=== PATIENT | male | born 1975 | race African-American/Black ===

== ENCOUNTER 2020-10-13 13:17 | Inpatient (IN) | payer OTHER, SELFPAY ==
--- NOTE | ~2020-10-13 | US_ITS ---
EXAMINATION: US VENOUS ULTRASOUND WITH DOPPLER LOWER EXTREMITY, LEFT CLINICAL INFORMATION: Left lower extremity edema and pain. COMPARISON: None TECHNIQUE: Ultrasound of the deep veins is performed from the hip to the calf with compression sonography and color and pulse Doppler assessment. Spectral analysis with color-flow imaging is performed. FINDINGS: The common femoral vein demonstrates normal compression and flow on color Doppler. The femoral vein is duplicated within the proximal and mid thigh. There is noncompressibility and hypoechoic material within both femoral veins consistent with acute thrombus. There is also noncompressibility within the single distal femoral vein consistent with acute thrombus. The popliteal vein is compressible and appears patent on color imaging. The peroneal veins are not identified. The posterior tibial veins appear patent. US/US venous duplex LE LT IMPRESSION: Acute DVT within both duplicated femoral veins. Findings communicated to Dr. Collazo via telephone at 1501 on 10/13/[address] Bravo.
--- NOTE | ~2020-10-13 | CT_ITS ---
EXAMINATION: CT LOWER LEG WITH CONTRAST, LEFT CLINICAL INFORMATION: Evaluate for abscess COMPARISON: None TECHNIQUE: CT of the left lower leg following intravenous administration of 85 mL Omnipaque 350 iodinated contrast is performed with sagittal and coronal reformats. This CT examination was performed using dose optimization techniques as appropriate, variously including the following: *Automated exposure control *Adjustment of mA and/or kV according to patient size (this includes techniques or standardized protocols for targeted exams where dose is matched to indication/reason for exam; i.e. extremities or head) *Use of iterative reconstruction technique DLP: 305 FINDINGS: There is artifact related to the fracture fixation plate and screws and metallic fragments. The comminuted tibial fracture appears predominantly healed, with residual longitudinal defect along the lateral cortex and some persistent lucency surrounding both fragments and cortical fragments within the central portion of the medullary canal. Overall, osseous bridging is approximately 90%. There is diffuse subcutaneous edema. No focal or peripherally enhancing fluid collection is demonstrated to indicate an abscess. CT/CT lower leg LT w con IMPRESSION: Approximately 90% osseous bridging of the comminuted tibial fracture. Diffuse subcutaneous edema with no focal fluid collection to indicate an abscess. Visualization is partially obscured by metal artifact.
[2020-10-13 13:23] VITALS: BP 140/78; PULSE 45; RESP 16; O2SAT 100; BMI 35.2
[2020-10-13 13:29] VITALS: BP 141/77; PULSE 47; RESP 16; TEMP 37; O2SAT 99
--- NOTE | 2020-10-13 13:29 | ED_ITS ---
HPI - Extremity Problem General Chief complaint: Extremity Injury, Lower Stated complaint: left lower leg pain/swelling s/p lac ?infection Time Seen by Provider: 10/13/20 13:22 Source: patient and EMS Mode of arrival: other (EMS in police custody) Limitations: no limitations History of Present Illness HPI Narrative: 45 yo male comes in with PD initial call for anxiety but then he told EMS he noted his L leg was more swollen and painful yesterday treated 2 weeks ago in [place] for laceration repair after cutting it with his glass - denies tetanus shot is up to date. denies any systemic symptoms MD Complaint: extremity pain and extremity swelling Onset (ago): day(s) (very vague but states he really noticed it yesterday) Pain Consistency: constant Location: left and lower extremity Quality: aching and constant Radiation: proximal Exacerbating factors: weight bearing, walking and palpation Associated symptoms: denies other symptoms Context: recent surgery/procedure (lac repair) Related Data Allergies Allergy/AdvReac Type Severity Reaction Status Date / Time No Known Allergies Allergy Verified 10/13/20 13:36 Review of Systems Review of Systems: Constitutional : No Fever, No Chills ENT/Mouth : No sore throat, No Rhinorrhea Eyes: No Eye Pain, No Swelling, No Redness Cardiovascular : No Chest Pain, No SOB Respiratory : No Cough, No Sputum Gastrointestinal : No Nausea, No Vomiting, No Diarrhea, No abdominal Pain Genitourinary : No Dysuria, No Hematuria Musculoskeletal : No joint pain, No Myalgias, No Joint Swelling, pos leg pain and swelling Skin : No Skin Lesions, positive skin rash Neuro : No Weakness, No Numbness, No Headache Psych : No Anxiety, No Depression Heme/Lymph: No Bruising, No Bleeding,No Lymphadenopathy Endocrine : No Polyuria, No Polydipsia All other systems reviewed and are negative PMFSH Past Medical History Attestation statement: The following information was validated with the patient. Medical History (Updated 10/13/20 @ 16:03 by Daisha Collazo DO) Patient denies medical problems Social History Social History (Updated 10/13/20 @ 13:49 by Daisha Collazo DO) Patient Tobacco Use Status: Current everyday Tobacco user Use of substances other than those prescribed or required for medical reasons: No Advance Directives: No Advance Directives Information Provided: No Physical Exam Vital Signs: Vital Signs: Last Vital Signs Temp 98.6 F 10/13/20 13:29 Pulse 45 L 10/13/20 14:51 Resp 16 10/13/20 14:51 BP 125/72 10/13/20 14:51 Pulse Ox 96 10/13/20 14:51 Body Mass Index 35.2 Appearance: Alert. Oriented X3. No acute distress. Eyes: Pupils equal, round and reactive to light. ENT: Pharynx normal. Neck: Normal inspection. Neck supple. CVS: Normal heart rate and rhythm. Pulses normal. Respiratory: No respiratory distress. Breath sounds normal. Abdomen: Soft and nontender. Skin: Skin warm and dry. Normal skin color. Extremities: LLE moderate swelling with dehisced suture area on left lateral upper cardozo - there is yellow drainage noted that is purulent with an odor, area is warm to the touch and erythematous, distal NV intact, no crepitus felt Neuro: Oriented X 3. No motor deficit. No sensory deficit. Course Course Course Narrative: + DVT will order coags as well as lovenox likely admit at this time and will obtain CT Scan as well to r/o abscess Dr. Benites aware does not seem abscess noted on CT scan, okay to give lovenox at this time Procedures Procedure Narrative Procedure Narrative: removal of sutures uncomplicated partially dehisced MDM - Extremity (Nontraumatic) MDM Narrative Medical decision making narrative: 45 yo male with LLE swelling and infection wi th sutures still in place - will need labs, IV antibiotics zosyn and vancomycin, DVT study and CT scan for deeper infection, dispo per results and findings at this time. Lab Data Result diagrams: 10/13/20 15:55 10/13/20 14:03 Labs: Lab Results 10/13/20 10/13/20 10/13/20 Range/Units 14:03 14:04 14:04 WBC (4.8-10.8) X10*3/uL RBC (4.60-5.80) X10*6/uL Hgb (14.0-18.0) g/dl Hct (42-52) % MCV (80-98) fL MCH (27.0-33.0) pg MCHC (31.0-36.0) g/dl RDW (11.0-16.0) % Plt Count (160-400) X10*3/uL MPV (9.4-12.4) fL Immature Gran % (Auto) (0.0-0.4) % Neut % (Auto) (45-73) % Lymph % (Auto) (20-40) % [place] % (Auto) (2-11) % Eos % (Auto) (0-4) % Baso % (Auto) (0-2) % Lymph # (Auto) (1.2-4.9) X10*3/uL [place] # (Auto) (0.1-1.2) X10*3/uL Eos # (Auto) (0.0-0.4) X10*3/uL Baso # (Auto) (0.0-0.2) X10*3/uL Abs Immat Gran (auto) (0.00-0.03) X10*3/uL Absolute Neuts (auto) (2.0-8.3) X10*3/uL Absolute Nucleated RBC (0.0-0.012) X10*3/uL Nucleated RBC % (auto) (0.0-0.2) /100WBC Sodium 138 (135-145) mmol/L Potassium 4.8 (3.3-5.1) mmol/L Chloride 105 (96-108) mmol/L Carbon Dioxide 24 (22-29) mmol/L Anion Gap 14 (12-20) BUN 14 (9-16) mg/dL Creatinine 0.93 (0.5-1.4) mg/dL Estim Creat Clear Calc 135.7 Estimated GFR > 60 Random Glucose 103 (60-115) mg/dL Lactic Acid 1.1 (0.5-2.0) mmol/L Calcium 9.2 (8.4-10.2) mg/dL Magnesium 2.3 (1.6-2.6) mg/dL Total Bilirubin 0.3 (0.0-1.0) mg/dL Direct Bilirubin < 0.2 (0.0-0.5) mg/dL AST 22 (5-37) U/L ALT 18 (0-40) U/L Alkaline Phosphatase 43 (39-117) U/L Total Creatine Kinase 236 H (38-174) U/L C-Reactive Protein 0.22 (< or = 0.50) mg/dL Total Protein 7.4 (6.5-8.0) g/dL Albumin 4.0 (3.5-5.0) g/dL COVID-19 ([facility]) Negative (Negative) COVID-19 Clin Com See Note 10/13/20 Range/Units 15:55 WBC 7.8 (4.8-10.8) X10*3/uL RBC 4.26 L (4.60-5.80) X10*6/uL Hgb 12.1 L (14.0-18.0) g/dl Hct 38.0 L (42-52) % MCV 89.2 (80-98) fL MCH 28.4 (27.0-33.0) pg MCHC 31.8 (31.0-36.0) g/dl RDW 13.3 (11.0-16.0) % Plt Count 172 (160-400) X10*3/uL MPV 10.5 (9.4-12.4) fL Immature Gran % (Auto) 0.3 (0.0-0.4) % Neut % (Auto) 71.8 (45-73) % Lymph % (Auto) 18.3 L (20-40) % [place] % (Auto) 7.9 (2-11) % Eos % (Auto) 1.3 (0-4) % Baso % (Auto) 0.4 (0-2) % Lymph # (Auto) 1.4 (1.2-4.9) X10*3/uL [place] # (Auto) 0.6 (0.1-1.2) X10*3/uL Eos # (Auto) 0.1 (0.0-0.4) X10*3/uL Baso # (Auto) 0.0 (0.0-0.2) X10*3/uL Abs Immat Gran (auto) 0.02 (0.00-0.03) X10*3/uL Absolute Neuts (auto) 5.6 (2.0-8.3) X10*3/uL Absolute Nucleated RBC 0.000 (0.0-0.012) X10*3/uL Nucleated RBC % (auto) 0.0 (0.0-0.2) /100WBC Sodium (135-145) mmol/L Potassium (3.3-5.1) mmol/L Chloride (96-108) mmol/L Carbon Dioxide (22-29) mmol/L Anion Gap (12-20) BUN (9-16) mg/dL Creatinine (0.5-1.4) mg/dL Estim Creat Clear Calc Estimated GFR Random Glucose (60-115) mg/dL Lactic Acid (0.5-2.0) mmol/L Calcium (8.4-10.2) mg/dL Magnesium (1.6-2.6) mg/dL Total Bilirubin (0.0-1.0) mg/dL Direct Bilirubin (0.0-0.5) mg/dL AST (5-37) U/L ALT (0-40) U/L Alkaline Phosphatase (39-117) U/L Total Creatine Kinase (38-174) U/L C-Reactive Protein (< or = 0.50) mg/dL Total Protein (6.5-8.0) g/dL Albumin (3.5-5.0) g/dL COVID-19 ([facility]) (Negative) COVID-19 Clin Com Discharge Plan Discharge Clinical Impression: Cellulitis Qualifiers: Site of cellulitis: extremity Site of cellulitis of extremity: lower extremity Laterality: left Qualified Code(s): L03.116 - Cellulitis of left lower limb DVT (deep venous thrombosis) Qualifiers: DVT location: lower extremity Affected thrombotic vein of extremity: femoral Chronicity: acute Laterality: left Qualified Code(s): I82.412 - Acute embolism and thrombosis of left femoral vein Patient Disposition: Admitted As Inpatient
--- NOTE | 2020-10-13 13:33 | PC.NURSE ---
patient is in [facility] custody s/p shoplifting incident. Per EMS patient gave the police a false identity d/t the fact that he has several warrants under his name. Patient denies this and when prompted by this RN if he had identification or was able to state his social security number he denies having any form of identification or knowledge of his social security number. Charge nurse and provider made aware.
[2020-10-13] MEDS: Piperacillin Sodium/Tazobactam 3.375 GM in 0.9 % Sodium Chloride 50 ML IV ×2 (14:09→17:45)
[2020-10-13] MEDS: Diphth,Pertus(ACell),Tet Adult 0.5 ML SYRINGE IM (14:10)
[2020-10-13 14:32] LABS: COVID-19 Test Negative (Negative)
[2020-10-13 14:34] LABS: Lactic Acid 1.1 mmol/L (0.5-2.0)
[2020-10-13 14:42] LABS: Alanine Aminotransferase 18 U/L (0-40); Alkaline Phosphatase 43 U/L (39-117); Anion Gap 14 (12-20); Aspartate Amino Transferase 22 U/L (5-37); Bilirubin Direct < 0.2 mg/dL (0.0-0.5); Bilirubin Total 0.3 mg/dL (0.0-1.0); Blood Urea Nitrogen 14 mg/dL (9-16); C Reactive Protein 0.22 mg/dL (< or = 0.50); Calcium 9.2 mg/dL (8.4-10.2); Carbon Dioxide 24 mmol/L (22-29); Chloride 105 mmol/L (96-108); Creatinine Clr Calc Pharmacy 135.7; Estimated Glomerular Filt Rate > 60; Glucose Random 103 mg/dL (60-115); Magnesium 2.3 mg/dL (1.6-2.6); Potassium 4.8 mmol/L (3.3-5.1); Sodium 138 mmol/L (135-145); Total Protein 7.4 g/dL (6.5-8.0)
[2020-10-13] MEDS: vancomycin HCL 1,500 MG in 0.9 % Sodium Chloride 500 ML 333.33 MG IV (14:50)
[2020-10-13 14:51] VITALS: BP 125/72; PULSE 45; RESP 16; O2SAT 96
[2020-10-13] MEDS: iohexoL 350 MG/ML 100 ML INFUS..BTL IV (15:26)
[2020-10-13 15:57] LABS: MANUAL DIFF FLAG NO
[2020-10-13 15:59] LABS: Basophils Percent Auto 0.4 % (0-2); Eosinophils Absolute Auto 0.1 X10*3/uL (0.0-0.4); Eosinophils Percent Auto 1.3 % (0-4); Hemoglobin 12.1 g/dl (14.0-18.0); Imm Gran Abs Auto 0.02 X10*3/uL (0.00-0.03); Imm Gran Pct Auto 0.3 % (0.0-0.4); Lymphocytes Absolute Auto 1.4 X10*3/uL (1.2-4.9); Lymphocytes Percent Auto 18.3 % (20-40); Mean Corpuscular HGB Conc 31.8 g/dl (31.0-36.0); Mean Corpuscular Hemoglobin 28.4 pg (27.0-33.0); Mean Corpuscular Volume 89.2 fL (80-98); Mean Platelet Volume 10.5 fL (9.4-12.4); Monocytes Absolute Auto 0.6 X10*3/uL (0.1-1.2); Monocytes Percent Auto 7.9 % (2-11); Neutrophils Absolute Auto 5.6 X10*3/uL (2.0-8.3); Neutrophils Percent Auto 71.8 % (45-73); Platelet Count 172 X10*3/uL (160-400); Red Blood Count 4.26 X10*6/uL (4.60-5.80); Red Cell Distribution Width 13.3 % (11.0-16.0); White Blood Count 7.8 X10*3/uL (4.8-10.8)
[2020-10-13 16:17] LABS: Prothrombin Time 11.2 SEC (9.9-13.0)
[2020-10-13 16:20] LABS: Partial Thromboplastin Time 35.7 SEC (24.1-38.0)
[2020-10-13] MEDS: Enoxaparin Sodium 100 MG/ML SYRINGE 120 MG SUBCUT (16:39)
[2020-10-13 18:17] VITALS: BP 138/78; PULSE 52; RESP 20; TEMP 36.7; O2SAT 99
[2020-10-13 19:00] LABS: Hematocrit 39.5 % (42-52); Hemoglobin 12.7 g/dl (14.0-18.0); Mean Corpuscular HGB Conc 32.2 g/dl (31.0-36.0); Mean Corpuscular Hemoglobin 28.6 pg (27.0-33.0); Platelet Count 172 X10*3/uL (160-400); Red Blood Count 4.44 X10*6/uL (4.60-5.80); Red Cell Distribution Width 13.3 % (11.0-16.0); White Blood Count 6.8 X10*3/uL (4.8-10.8)
[2020-10-13 19:02] LABS: Prothrombin Time 11.9 SEC (9.9-13.0)
[2020-10-13 19:06] LABS: Partial Thromboplastin Time 48.1 SEC (24.1-38.0)
--- NOTE | 2020-10-13 19:24 | PC.NURSE ---
patient reported to this RN that he was supposed to start methadone today and was wondering if he would be able to get his dose at [facility]. per pt the last time he used was 10/13 at 0300. this RN informed the patient that typically [facility] does not start individuals on methadone and that given the fact that he used at 0300, they also prefer to wait at least a 24hr period and even then may not give methadone but rather suboxone. information regarding this conversation was relayed to the head charger and will be relayed to the floor RN.
--- NOTE | 2020-10-13 19:40 | PC.NURSE ---
attempted to call report to the floor, will call back when available
[2020-10-13 20:38] VITALS: BP 141/75; PULSE 50; RESP 16; TEMP 36.4; O2SAT 100
[2020-10-13] MEDS: Nicotine 21 MG PATCH.TD24 TRANSDERMA (20:47)
[2020-10-13] MEDS: HYDROmorphone HCl 0.5 MG/0.5 ML SYRINGE 1 MG IVPUSH (20:48)
[2020-10-13] MEDS: 0.9 % Sodium Chloride Flush 3 ML SYRINGE IVFLUSH (20:48)
--- NOTE | 2020-10-13 22:03 | HP_ITS ---
DATE OF SERVICE: 10/13/2020 CHIEF COMPLAINT: Left leg swelling and pain. HISTORY OF PRESENTING ILLNESS: This is a 45-year-old gentleman brought to [facility] under police custody since the patient was arrested due to shoplifting. The patient complained of left leg swelling and pain. Approximately 2 weeks ago, the patient sustained a laceration due to significant cut from a glass. The wound was repaired at [place], patient was supposed to have a followup in 7 to 10 days, however, he missed the appointment and subsequently developed significant pain and swelling. In the emergency room, the patient was noted to have drainage and wound dehiscence in the left leg. CT scan of the left leg showed no fluid collection or drainable abscess. Sutures were removed,significant amount of pus was drained. Further workup included an ultrasound of the left leg that showed DVT of duplicated femoral veins, therefore, the patient was placed on Lovenox and now being admitted for continued monitoring and treatment. The patient at the present time admits that he is going through withdrawal symptoms, feeling shaky, nauseous, he admits using 3 bundles of heroin daily, last use was this morning. He usually smokes or inhale. Denies IV drug use. He also admits to drinking quarter pint of alcohol on a daily basis,last drink was at 3 am , complaining of shakiness. He is also complaining of feeling cold, chilly, and feverish. PAST MEDICAL HISTORY: Significant for left tibial fracture. SOCIAL HISTORY: The patient smokes 1 pack of cigarette a day. He smokes 3-bundle of heroin daily. He does private work. Ambulates without assistive device. FAMILY HISTORY: Denies family history of premature coronary artery disease, diabetes. REVIEW OF SYSTEMS: SIGNAL CIRCUIT DESIGNER: Denies any headache, lightheadedness, or dizziness. CVS: Denies any chest pain or palpitation. RESPIRATORY: No cough. No shortness of breath. : No urinary symptoms of frequency or urgency. GENERAL: Complain of chills, feverish feeling, and shakiness. PHYSICAL EXAMINATION: GENERAL: Resting in bed, does not appear to be in acute distress. NECK: Supple. No JVD. Oral mucosa moist. LUNGS: Clear to auscultation bilaterally. HEART: Regular rate and rhythm. No murmurs appreciated. ABDOMEN: Soft and nontender. Bowel sounds are audible. EXTREMITIES: No peripheral edema noted. Left thigh swollen with an open wound, tender to palpation with mild induration. NEUROLOGIC: The patient is alert and oriented x3. No motor or sensory deficit noted. LABORATORY DATA: Showed a normal CBC and normal electrolytes. CK 236. CRP 0.22. Imaging study, lower extremity CT showed no evidence of fluid collection. ASSESSMENT AND PLAN: This is a 45-year-old gentleman who presented to [facility] due to symptoms of left thigh swelling and pain, worse in the last 3 days after he sustained a laceration 2 weeks ago that was sutured, it oozed. The patient now diagnosed to have left femoral vein thrombosis, infected left thigh laceration, alcohol intoxication and withdrawal as well as opioid use disorder. 1. Left femoral vein deep vein thrombosis. The patient will be admitted to intermediate care unit, has been placed on Lovenox twice daily. Subsequently, will be placed on oral anticoagulant after obtaining further information regarding his PCP and insurance. 2. Infected left thigh laceration. The patient will be placed on IV vancomycin and Zosyn. Follow blood cultures x2. Obtain surgical consultation for possible I and D. Continue wound care. 3. Tobacco use disorder. We will place on nicotine patch. Strongly advised to abstain from smoking. 4. Alcohol abuse with high risk for withdrawal, will be placed on phenobarb protocol, thiamine, folic acid, placed on Pepcid for GI prophylaxis. 5. Opioid use disorder, will be placed on Ativan, Atarax, we will obtain care team consultation and addiction team consultation. 6. Deep vein thrombosis prophylaxis on Lovenox. 7. Code status. Full code. MD TAHIRA Hinds/OLIVA / [id number] MTDYunier
[2020-10-13 23:12] VITALS: BP 141/73; PULSE 41; RESP 18; TEMP 36.8; O2SAT 99
[2020-10-13] MEDS: Acetaminophen 325 MG TABLET 650 MG PO (23:18)
[2020-10-13] MEDS: hydrOXYzine HCL 10 MG TABLET PO (23:19)
[2020-10-14] VITALS (7 sets, daily range): BP systolic 142–168; BP diastolic 74–86; PULSE 45–54; RESP 18–20; TEMP 36.4–36.7; O2SAT 98–100
[2020-10-14] MEDS: Piperacillin Sodium/Tazobactam 3.375 GM in 0.9 % Sodium Chloride 50 ML IV ×4 (00:06→18:40)
[2020-10-14] MEDS: vancomycin HCL 1,250 MG in 0.9 % Sodium Chloride 250 ML 166.67 MG IV ×2 (02:42→15:32)
[2020-10-14] MEDS: Enoxaparin Sodium 120 MG/0.8 ML SYRINGE SUBCUT ×2 (04:34→18:40)
[2020-10-14] MEDS: HYDROmorphone HCl 0.5 MG/0.5 ML SYRINGE 1 MG IVPUSH ×4 (04:35→18:40)
[2020-10-14 05:16] LABS: Amphetamine Screen Urine Not Detected (Not Detect); Barbiturates, Urine Not Detected (Not Detect); Benzodiazepines Screen Urine Not Detected (Not Detect); Cannabinoid Screen Urine Not Detected (Not Detect); Cocaine Screen Urine POSITIVE (Not Detect); Opiate Screen Urine POSITIVE (Not Detect); Phencyclidine Screen Urine Not Detected (Not Detect)
[2020-10-14 07:09] LABS: Hematocrit 37.6 % (42-52); Mean Corpuscular HGB Conc 31.9 g/dl (31.0-36.0); Mean Corpuscular Hemoglobin 27.8 pg (27.0-33.0); Mean Corpuscular Volume 87.2 fL (80-98); Mean Platelet Volume 11.2 fL (9.4-12.4); Platelet Count 172 X10*3/uL (160-400); Red Blood Count 4.31 X10*6/uL (4.60-5.80); Red Cell Distribution Width 13.2 % (11.0-16.0); White Blood Count 5.3 X10*3/uL (4.8-10.8)
--- NOTE | 2020-10-14 08:00 | ECG_ITS ---
Test Reason : chest pain Blood Pressure : / mmHG Vent. Rate : 048 BPM Atrial Rate : 048 BPM P-R Int : 194 ms QRS Dur : 110 ms QT Int : 444 ms P-R-T Axes : 071 070 043 degrees QTc Int : 396 ms Sinus bradycardia Otherwise normal ECG No previous ECGs available Referred By: Manuel Bautista Electronically Signed By:BLADE SIGALA
[2020-10-14] MEDS: Nicotine 21 MG PATCH.TD24 TRANSDERMA (09:01)
[2020-10-14] MEDS: Famotidine 20 MG TABLET PO (09:01)
[2020-10-14] MEDS: PHENobarbitaL 30 MG TABLET 60 MG PO ×2 (09:01→20:29)
[2020-10-14] MEDS: 0.9 % Sodium Chloride Flush 3 ML SYRINGE IVFLUSH ×2 (09:02→15:41)
--- NOTE | 2020-10-14 11:33 | MHC.RECOVSUP ---
Recovery Support note: Patient is a 45 year old German speaking male who presented to [facility] ED in police custody due to leg pain and swelling and patient was medically admitted. This senior medical writer met with patient in 453 to discuss his substance use and recovery supports. Patient appeared to be resting comfortable when this senior medical writer entered the room. Patient awoke when this senior medical writer spoke his name. Patient reports severe withdrawal symptoms, stating that he is sweating, having bodyaches and that he is unable to stay still. Patient reports he is not getting any relief from the pain medication currently provided. Patient reports he is not interested in discussing recovery supports due to his discomfort. This senior medical writer offered patient additional blankets, food or water for comfort and patient declined. This senior medical writer discussed case with patient's RN and Joya Chowdary NP. Plan is for the Addiction Consult Service to re-evaluate patient tomorrow. This senior medical writer will follow up with patient tomorrow to see if he is interested in recovery supports at that time.
--- NOTE | 2020-10-14 13:43 | MHC.CM.PN ---
CM MET WITH PT WHO APPEARS UNCOMFORTABLE AND PROVIDES SHORT ONE WORD ANSWERS ONLY. PT REPORTS HE DOES NOT LIVE ALONE BUT DOES NOT ELABORATE. PT DENIES HAVING SERVICES OR DME AND CONFIRMS HE HAS NO HEALTH INSURANCE OR PRIMARY CARE PROVIDERS. PT MADE AWARE A REFERRAL WOULD BE SENT TO [facility] SO THEY COULD ASSIST HIM IN APPLYING FOR [place]. PT IS CURRENTLY IN POLICE CUSTODY, THEY WILL PROVIDE TRANSPORTATION AT [facility]
--- NOTE | 2020-10-14 14:19 | HO.PM.IMPN ---
Subjective Subjective Date of Service: 10/14/20 Interval History: Complaining of persistent left leg pain and withdrawal symptoms asking for methadone, c/o chills. intermittent chest pain. 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 Neck no JVD. CVS regular rate rhythm, Respiratory lungs clear to auscultation, no respiratory distress, no wheeze, no rhonchi. Gastrointestinal abdomen soft, nontender, bowel sounds audible Extremities left leg swollen, small open wound left leg with small amount of purulent drainage, no surrounding fluctuation or induration Neuro nonfocal Skin no rash Objective Data Current Medications Generic Name Dose Route Start Last Admin Trade Name Dungq PRN Reason Stop Dose Admin Acetaminophen 650 mg 10/13/20 17:30 10/13/20 23:18 Acetaminophen 325 Mg Tablet PO 650 mg Q6H PRN Administration Pain, Mild (Pain Scale 1-3) Enoxaparin Sodium 120 mg 10/14/20 06:00 10/14/20 04:34 Enoxaparin Sodium 120 Mg/0.8 Ml Syringe 1 mg/kg (120 mg) 120 mg SUBCUT Administration Q12H ANDREEA Famotidine 20 mg 10/14/20 09:00 10/14/20 09:01 Famotidine 20 Mg Tablet PO 20 mg DAILY ANDREEA Administration Hydromorphone HCl 1 mg 10/13/20 17:30 10/14/20 13:51 Hydromorphone Hcl 0.5 Mg/0.5 Ml Syringe IVPUSH 1 mg Q4H PRN Administration Pain, Severe (Pain Scale 7-10) Hydroxyzine HCl 10 mg 10/13/20 19:22 10/13/20 23:19 Hydroxyzine Hcl 10 Mg Tablet PO 10 mg Q6H PRN Administration Anxiety Piperacillin Sod/Tazobactam 50 mls @ 100 mls/hr 10/13/20 19:00 10/14/20 13:51 Sod 3.375 gm/ Sodium Chloride IV 100 mls/hr Q6H ANDREEA Administration Vancomycin HCl 1,250 mg/ 250 mls @ 166.667 mls/hr 10/14/20 03:00 10/14/20 04:13 Sodium Chloride IV Infused Q12H ANDREEA Infusion Medication 1 each 10/14/20 09:00 No Benzodiazepines MISCELLANE DAILY ANDREEA Nicotine 21 mg 10/13/20 19:25 10/14/20 09:01 Nicotine 21 Mg Patch.Td24 TRANSDERMA 21 mg DAILY ANDREEA Administration Ondansetron HCl 4 mg 10/13/20 17:30 Ondansetron Hcl 4 Mg/2 Ml Vial IVPUSH Q8H PRN Nausea and Vomiting Pharmacy Consult 1 each 10/13/20 17:49 Consult Rx Vancomycin Dosing MISCELLANE DAILY PRN Consult order Phenobarbital 60 mg 10/14/20 09:00 10/14/20 09:01 Phenobarbital 30 Mg Tablet PO 10/15/20 21:01 60 mg BID ANDREEA Administration Phenobarbital 30 mg 10/16/20 09:00 Phenobarbital 30 Mg Tablet PO 10/17/20 21:01 BID ANDREEA Phenobarbital 30 mg 10/18/20 09:00 Phenobarbital 30 Mg Tablet PO 10/19/20 09:01 DAILY ANDREEA Sodium Chloride 3 ml 10/14/20 00:00 10/14/20 09:02 0.9 % Sodium Chloride Flush 3 Ml Syringe IVFLUSH 3 ml QSHIFT ANDREEA Administration Labs CBC & Chem 7: 10/14/20 06:09 10/13/20 14:03 Labs: Laboratory Results - last 24 hr 10/13/20 10/13/20 10/13/20 14:03 14:04 14:04 WBC RBC Hgb Hct MCV MCH MCHC RDW Plt Count MPV Immature Gran % (Auto) Neut % (Auto) Lymph % (Auto) [place] % (Auto) Eos % (Auto) Baso % (Auto) Lymph # (Auto) [place] # (Auto) Eos # (Auto) Baso # (Auto) Abs Immat Gran (auto) Absolute Neuts (auto) Absolute Nucleated RBC Nucleated RBC % (auto) PT INR APTT Sodium 138 Potassium 4.8 Chloride 105 Carbon Dioxide 24 Anion Gap 14 BUN 14 Creatinine 0.93 Estim Creat Clear Calc 135.7 Estimated GFR > 60 Random Glucose 103 Lactic Acid 1.1 Calcium 9.2 Magnesium 2.3 Total Bilirubin 0.3 Direct Bilirubin < 0.2 AST 22 ALT 18 Alkaline Phosphatase 43 Total Creatine Kinase 236 H C-Reactive Protein 0.22 Total Protein 7.4 Albumin 4.0 Urine Opiates Screen Ur Barbiturates Screen Ur Phencyclidine Scrn Ur Amphetamines Screen U Benzodiazepines Scrn Urine Cocaine Screen U Marijuana (THC) Screen COVID-19 (MELODIE) Negative COVID-19 Clin Com See Note 10/13/20 10/13/20 10/13/20 15:55 15:55 18:33 WBC 7.8 6.8 RBC 4.26 L 4.44 L Hgb 12.1 L 12.7 L Hct 38.0 L 39.5 L MCV 89.2 89.0 MCH 28.4 28.6 MCHC 31.8 32.2 RDW 13.3 13.3 Plt Count 172 172 MPV 10.5 11.0 Immature Gran % (Auto) 0.3 Neut % (Auto) 71.8 Lymph % (Auto) 18.3 L [place] % (Auto) 7.9 Eos % (Auto) 1.3 Baso % (Auto) 0.4 Lymph # (Auto) 1.4 [place] # (Auto) 0.6 Eos # (Auto) 0.1 Baso # (Auto) 0.0 Abs Immat Gran (auto) 0.02 Absolute Neuts (auto) 5.6 Absolute Nucleated RBC 0.000 0.000 Nucleated RBC % (auto) 0.0 0.0 PT 11.2 INR 1.0 APTT 35.7 Sodium Potassium Chloride Carbon Dioxide Anion Gap BUN Creatinine Estim Creat Clear Calc Estimated GFR Random Glucose Lactic Acid Calcium Magnesium Total Bilirubin Direct Bilirubin AST ALT Alkaline Phosphatase Total Creatine Kinase C-Reactive Protein Total Protein Albumin Urine Opiates Screen Ur Barbiturates Screen Ur Phencyclidine Scrn Ur Amphetamines Screen U Benzodiazepines Scrn Urine Cocaine Screen U Marijuana (THC) Screen COVID-19 (MELODIE) COVID-19 Clin Com 10/13/20 10/14/20 10/14/20 18:33 04:49 06:09 WBC 5.3 RBC 4.31 L Hgb 12.0 L Hct 37.6 L MCV 87.2 MCH 27.8 MCHC 31.9 RDW 13.2 Plt Count 172 MPV 11.2 Immature Gran % (Auto) Neut % (Auto) Lymph % (Auto) [place] % (Auto) Eos % (Auto) Baso % (Auto) Lymph # (Auto) [place] # (Auto) Eos # (Auto) Baso # (Auto) Abs Immat Gran (auto) Absolute Neuts (auto) Absolute Nucleated RBC 0.000 Nucleated RBC % (auto) 0.0 PT 11.9 INR 1.0 APTT 48.1 H D Sodium Potassium Chloride Carbon Dioxide Anion Gap BUN Creatinine Estim Creat Clear Calc Estimated GFR Random Glucose Lactic Acid Calcium Magnesium Total Bilirubin Direct Bilirubin AST ALT Alkaline Phosphatase Total Creatine Kinase C-Reactive Protein Total Protein Albumin Urine Opiates Screen POSITIVE H Ur Barbiturates Screen Not Detected Ur Phencyclidine Scrn Not Detected Ur Amphetamines Screen Not Detected U Benzodiazepines Scrn Not Detected Urine Cocaine Screen POSITIVE H U Marijuana (THC) Screen Not Detected COVID-19 (MELODIE) COVID-19 Clin Com Quality Stroke Does the patient have a stroke diagnosis?: No VTE Prior VTE?: No VTE Risk Level:: Medical - moderate - high VTE Device Contraindication: Treatment Not Indicated VTE Drug Contraindication: N/A - Med Ordered Assessment and Plan (1) Cellulitis: Status: Acute (2) DVT (deep venous thrombosis): Status: Acute (3) Opiate abuse, continuous: Status: Acute (4) Tobacco use: Status: Acute (5) Unspecified open wound, left lower leg, initial encounter: Status: Acute Assessment and Plan: 45-year-old gentleman who presented to [facility] due to symptoms of left thigh swelling and pain, worse in the last 3 days after he sustained a laceration 2 weeks ago that was sutured, it oozed. The patient now diagnosed to have left femoral vein thrombosis, infected left thigh laceration, alcohol intoxication and withdrawal as well as opioid use disorder. 1. Left femoral vein deep vein thrombosis. Question related to recent trauma, continue subQ Lovenox and transition to oral anticoagulants at a.m. Swelling seems to be improving, Obtain social service evaluation for outpatient follow-up and coverage for anticoagulant, initially in the emergency room patient did not provide detail information about his PCP and insurance. 2. Infected left thigh laceration. Normal WBC, No fevers blood cultures x2 pending, CT leg showed no evidence of fluid collection, no fluctuation or induration therefore will hold off on surgical consult If blood cultures negative transition to by mouth antibiotic Augmentin and discharge home on iv dilaudid for pain will wean to oxycodonein next 24 hrs 3. Tobacco use disorder. on nicotine patch. Strongly advised to abstain from smoking. 4. Alcohol abuse with high risk for withdrawal, on phenobarb protocol, thiamine, folic acid, placed on Pepcid for GI prophylaxis. 5. Opioid use disorder/withdrawal on Ativan, Atarax, await care team consultation and addiction team consultation. Patient toxicology screen positive for cocaine and opiates however he declined use of cocaine 6. Chest pain intermittent localized to mid chest with no radiation, no shortness of breath EKG obtained that showed no acute ischemic changes showed bradycardia, strongly advised to abstain from cocaine pt. denies use.will obtain trop and repeat ekg if chest pain reoccurs 7 Deep vein thrombosis prophylaxis on Lovenox. 8. Code status. Full code.
[2020-10-14 17:37] LABS: Prothrombin Time 11.6 SEC (9.9-13.0)
[2020-10-14] MEDS: hydrOXYzine HCL 10 MG TABLET PO (20:31)
[2020-10-15] VITALS (8 sets, daily range): BP systolic 136–156; BP diastolic 65–90; PULSE 50–88; RESP 18–24; TEMP 36.3–37.2; O2SAT 97–99
[2020-10-15] MEDS: 0.9 % Sodium Chloride Flush 3 ML SYRINGE IVFLUSH ×4 (00:15→20:52)
[2020-10-15] MEDS: HYDROmorphone HCl 0.5 MG/0.5 ML SYRINGE 1 MG IVPUSH ×4 (00:15→19:49)
[2020-10-15] MEDS: Piperacillin Sodium/Tazobactam 3.375 GM in 0.9 % Sodium Chloride 50 ML IV ×4 (00:16→18:30)
[2020-10-15 02:34] LABS: Vancomycin Trough 8.7 mcg/mL (10.0-20.0)
[2020-10-15] MEDS: vancomycin HCL 1,250 MG in 0.9 % Sodium Chloride 250 ML 166.67 MG IV (03:00)
[2020-10-15] MEDS: Enoxaparin Sodium 120 MG/0.8 ML SYRINGE SUBCUT (06:22)
--- NOTE | 2020-10-15 07:13 | PC.NURSE ---
0240; Vancomycin trough came back low at 8.7 Patient is on vancomycin 1250 mg with next dose due at 0300. MD made aware vancomycin trough low. Spoke with night pharmacy, per overnight pharmacy ok to administer 0300 scheduled vancomycin 1250 mg dose. AM inhouse pharmacy to adjust vancomycin dose.
[2020-10-15] MEDS: Famotidine 20 MG TABLET PO (09:09)
[2020-10-15] MEDS: Thiamine HCL 100 MG TABLET PO (09:09)
[2020-10-15] MEDS: Folic Acid 1 MG TABLET PO (09:09)
[2020-10-15] MEDS: PHENobarbitaL 30 MG TABLET 60 MG PO ×2 (09:09→20:52)
[2020-10-15] MEDS: Nicotine 21 MG PATCH.TD24 TRANSDERMA (09:09)
--- NOTE | 2020-10-15 11:45 | MHC.RECOVRN ---
T/w met with pt to sign DAVID for [facility] on [facility] in [place]. Pt reports so much pain and not being able to rest after receiving 10 mg methadone earlier this morning. Pt in chair and visibly restless. Discussed with Joya Chowdary APRN.
--- NOTE | 2020-10-15 14:49 | MHC.CM.PN ---
requested p[matthew kruger at the group home re pts meds [phone]/jess
--- NOTE | 2020-10-15 15:05 | HO.ADDICT_ITS ---
History of Present Illness Date of Service: 10/15/2020 Chief Complaint: Left Leg DVT Reason for Consult: Opioid use disorder Requesting physician: Manuel Bautista HPI Narrative: Per H and P: 45-year-old gentleman who presented to [facility] due to symptoms of left thigh swelling and pain, worse in the last 3 d ays after he sustained a laceration 2 weeks ago that was sutured, it oozed. The patient now diagnosed to have left femoral vein thrombosis, infected left thigh laceration, alcohol intoxication and withdrawal as well as opioid use disorder . Consult requested as patient was reporting opioid withdrawal symptoms. Patient seen in room 453, officer from the shares department present in the room as patient is still in custody. Patient awake, alert, and engaged in interview. Patient reports that he is currently experiencing opioid withdrawal symptoms including, chills, restlessness, anxiety, joint pain, back pain, and GI upset. He reports that he currently uses between 2-3 bundles per day intranasally, and has been using for about 6 years. He denies any treatment history, aside from a very brief period of time on methadone. Denies any detox admissions for overdoses. Patient requesting methadone, reports that Suboxone makes his stomach upset. Review of Systems Constitutional: Reports as per HPI Diagnostics Vital Signs (24Hr): Vital Signs - 24 hr 10/14/20 15:24 10/14/20 20:00 10/14/20 23:54 Temperature 98.1 F 98.1 F 97.6 F Pulse Rate 52 52 54 Respiratory Rate 20 20 18 Blood Pressure 142/86 H 161/74 H 162/84 H Pulse Oximetry 100 98 98 10/15/20 00:15 10/15/20 02:53 10/15/20 02:57 Temperature 97.6 F 97.8 F Pulse Rate 82 88 Respiratory Rate 18 20 20 Blood Pressure 154/76 H 138/76 138/84 Pulse Oximetry 98 98 10/15/20 07:54 10/15/20 11:42 Temperature 98.0 F 97.4 F Pulse Rate 51 62 Respiratory Rate 18 18 Blood Pressure 136/65 152/90 H Pulse Oximetry 99 99 Body Mass Index 35.2 Labs Results: 10/14/20 06:09 10/13/20 14:03 Labs: Laboratory Results - last 48 hr 10/13/20 10/13/20 10/13/20 15:55 15:55 18:33 WBC 7.8 6.8 RBC 4.26 L 4.44 L Hgb 12.1 L 12.7 L Hct 38.0 L 39.5 L MCV 89.2 89.0 MCH 28.4 28.6 MCHC 31.8 32.2 RDW 13.3 13.3 Plt Count 172 172 MPV 10.5 11.0 Immature Gran % (Auto) 0.3 Neut % (Auto) 71.8 Lymph % (Auto) 18.3 L [place] % (Auto) 7.9 Eos % (Auto) 1.3 Baso % (Auto) 0.4 Lymph # (Auto) 1.4 [place] # (Auto) 0.6 Eos # (Auto) 0.1 Baso # (Auto) 0.0 Abs Immat Gran (auto) 0.02 Absolute Neuts (auto) 5.6 Absolute Nucleated RBC 0.000 0.000 Nucleated RBC % (auto) 0.0 0.0 PT 11.2 INR 1.0 APTT 35.7 Vancomycin Trough Urine Opiates Screen Ur Barbiturates Screen Ur Phencyclidine Scrn Ur Amphetamines Screen U Benzodiazepines Scrn Urine Cocaine Screen U Marijuana (THC) Screen 10/13/20 10/14/20 10/14/20 18:33 04:49 06:09 WBC 5.3 RBC 4.31 L Hgb 12.0 L Hct 37.6 L MCV 87.2 MCH 27.8 MCHC 31.9 RDW 13.2 Plt Count 172 MPV 11.2 Immature Gran % (Auto) Neut % (Auto) Lymph % (Auto) [place] % (Auto) Eos % (Auto) Baso % (Auto) Lymph # (Auto) [place] # (Auto) Eos # (Auto) Baso # (Auto) Abs Immat Gran (auto) Absolute Neuts (auto) Absolute Nucleated RBC 0.000 Nucleated RBC % (auto) 0.0 PT 11.9 INR 1.0 APTT 48.1 H D Vancomycin Trough Urine Opiates Screen POSITIVE H Ur Barbiturates Screen Not Detected Ur Phencyclidine Scrn Not Detected Ur Amphetamines Screen Not Detected U Benzodiazepines Scrn Not Detected Urine Cocaine Screen POSITIVE H U Marijuana (THC) Screen Not Detected 10/14/20 10/15/20 17:26 01:43 WBC RBC Hgb Hct MCV MCH MCHC RDW Plt Count MPV Immature Gran % (Auto) Neut % (Auto) Lymph % (Auto) [place] % (Auto) Eos % (Auto) Baso % (Auto) Lymph # (Auto) [place] # (Auto) Eos # (Auto) Baso # (Auto) Abs Immat Gran (auto) Absolute Neuts (auto) Absolute Nucleated RBC Nucleated RBC % (auto) PT 11.6 INR 1.0 APTT Vancomycin Trough 8.7 L Urine Opiates Screen Ur Barbiturates Screen Ur Phencyclidine Scrn Ur Amphetamines Screen U Benzodiazepines Scrn Urine Cocaine Screen U Marijuana (THC) Screen Imaging Radiology Impressions: ITS Impressions Lower Extremity CT 10/13/20 13:40 IMPRESSION: Approximately 90% osseous bridging of the comminuted tibial fracture. Diffuse subcutaneous edema with no focal fluid collection to indicate an abscess. Visualization is partially obscured by metal artifact. Venous Duplex 10/13/20 13:40 IMPRESSION: Acute DVT within both duplicated femoral veins. Findings communicated to Dr. Collazo via telephone at 1501 on 10/13/[address] Bravo. Mental Status Exam Mental Status Exam Patient Appearance: Appropriate Patient Orientation: Person, Place, Time and Situation Level of Consciousness: Appropriate Patient Behavior: Appropriate Mood Description: Calm and Appropriate Affect Description: Calm and Appropriate Patient Cognition Impaired: No Ability to Follow Directions: Excellent Speech Pattern: Clear Memory Description: Intact Hallucinations: None Delusions: Not Present Thought Process: Goal Oriented Thought Content: positive for Intact Judgement: Fair Medications Medications Current Medications Generic Name Dose Route Start Last Admin Trade Name Freq PRN Reason Stop Dose Admin Acetaminophen 650 mg 10/13/20 17:30 10/13/20 23:18 Acetaminophen 325 Mg Tablet PO 650 mg Q6H PRN Administration Pain, Mild (Pain Scale 1-3) Apixaban 10 mg 10/15/20 18:00 Apixaban 5 Mg Tablet PO BID@0600,1800 ANDREEA Famotidine 20 mg 10/14/20 09:00 10/15/20 09:09 Famotidine 20 Mg Tablet PO 20 mg DAILY ANDREEA Administration Folic Acid 1 mg 10/15/20 09:00 10/15/20 09:09 Folic Acid 1 Mg Tablet PO 1 mg DAILY ANDREEA Administration Hydromorphone HCl 1 mg 10/13/20 17:30 10/15/20 12:03 Hydromorphone Hcl 0.5 Mg/0.5 Ml Syringe IVPUSH 1 mg Q4H PRN Administration Pain, Severe (Pain Scale 7-10) Hydroxyzine HCl 10 mg 10/13/20 19:22 10/14/20 20:31 Hydroxyzine Hcl 10 Mg Tablet PO 10 mg Q6H PRN Administration Anxiety Piperacillin Sod/Tazobactam 50 mls @ 100 mls/hr 10/13/20 19:00 10/15/20 14:06 Sod 3.375 gm/ Sodium Chloride IV Infused Q6H ANDREEA Infusion Vancomycin HCl 1,500 mg/ 500 mls @ 333.333 mls/hr 10/15/20 15:00 Sodium Chloride IV Q12H ANDREEA Medication 1 each 10/14/20 09:00 No Benzodiazepines MISCELLANE DAILY ANDREEA Nicotine 21 mg 10/13/20 19:25 10/15/20 09:09 Nicotine 21 Mg Patch.Td24 TRANSDERMA 21 mg DAILY ANDREEA Administration Ondansetron HCl 4 mg 10/13/20 17:30 Ondansetron Hcl 4 Mg/2 Ml Vial IVPUSH Q8H PRN Nausea and Vomiting Pharmacy Consult 1 each 10/13/20 17:49 Consult Rx Vancomycin Dosing MISCELLANE DAILY PRN Consult order Phenobarbital 60 mg 10/14/20 09:00 10/15/20 09:09 Phenobarbital 30 Mg Tablet PO 10/15/20 21:01 60 mg BID ANDREEA Administration Phenobarbital 30 mg 10/16/20 09:00 Phenobarbital 30 Mg Tablet PO 10/17/20 21:01 BID ANDREEA Phenobarbital 30 mg 10/18/20 09:00 Phenobarbital 30 Mg Tablet PO 10/19/20 09:01 DAILY ANDREEA Sodium Chloride 3 ml 10/14/20 00:00 10/15/20 09:10 0.9 % Sodium Chloride Flush 3 Ml Syringe IVFLUSH 3 ml QSHIFT ANDREEA Administration Thiamine HCl 100 mg 10/15/20 09:00 10/15/20 09:09 Thiamine Hcl 100 Mg Tablet PO 100 mg DAILY ANDREEA Administration Allergies Allergies Allergy/AdvReac Type Severity Reaction Status Date / Time No Known Allergies Allergy Verified 10/13/20 13:36 Assessment & Plan Assessment & Plan (1) Opioid use disorder: Status: Acute Code(s): F11.99 - Opioid use, unspecified with unspecified opioid-induced disorder Recommendations: * While patient was reporting numerous symptoms of opioid withdrawal, upon exam he appeared quite comfortable and in no distress. Plan was for 10 mg of methadone q.4 hours max of 3 doses. Patient received 1st dose of 10 mg and was very upset that dose was so small. Additional 15 mg of methadone given several hours later with good effect. * If necessary patient may receive additional 5-10 mg of methadone this evening. * Tomorrow to received total of today (25 mg) and additional if given overnight * Patient working with recovery support nurse to coordinate discharge to [facility] in [place]. Greater than 50% of the session was spent on counseling and/or coordination of care PMFSH Past Medical History Medical History (Updated 10/15/20 @ 15:53 by Joya Chowdary CNP) Opiate abuse, continuous Patient denies medical problems Social History Social History (Updated 10/13/20 @ 13:49 by Daisha Collazo DO) Household Members: None Housing: Apartment Do you presently have visiting nurse or other home services: No Patient Tobacco Use Status: Current everyday Tobacco user Tobacco use type: Cigarette Cigarette Packs Per Day: 1 Cigarettes Per Day: 20.0 Smoked in Last 30 Days: Yes Patient Interested in Nicotine Replacement: Yes Patient Given Instructions on How to Stop Smoking: Yes Date Education Initiated: 10/13/20 Use of substances other than those prescribed or required for medical reasons: No Currently Displaying Signs/Symptoms of Drug Intoxication Withdrawal: No Have you been hit, kicked, punched, or otherwise hurt by someone within the past year? If so, by whom?: No Do you feel safe in your current relationship?: No Current Relationship Is there a partner from a previous relationship who is making you feel unsafe now?: No Are you made to feel afraid or neglected: No Advance Directives: No Advance Directives Information Provided: No Do you have thoughts of harming others: None Do you have a plan to hurt others: No Plan Recently lost weight without trying: No service: No Current occupational status: unemployed
[2020-10-15] MEDS: vancomycin HCL 1,500 MG in 0.9 % Sodium Chloride 500 ML 333.33 MG IV (15:30)
--- NOTE | 2020-10-15 15:49 | MHC.RECOVRN ---
T/w met with pt to f/u after receiving second dose of methadone. Pt reports feeling wonderful. Denies withdrawal symptoms. Pt looking forward to joining [facility] and feels it will be very helpful with his recovery. Discussed with Joya Chowdary APRN. Will continue to follow.
--- NOTE | 2020-10-15 16:04 | HO.PM.IMPN ---
Subjective Subjective Date of Service: 10/15/20 Interval History: c/o generalized pain, anxiety, restlessness- withdrawaing from heroin L thigh laceration without drainage, wound closed, sutures out Still in police custody Physical Exam Vital Signs: Vital Signs: Last Vital Signs Temp 98.0 F 10/15/20 15:55 Pulse 50 10/15/20 15:55 Resp 18 10/15/20 15:55 BP 149/85 H 10/15/20 15:55 Pulse Ox 99 10/15/20 15:55 Body Mass Index 35.2 Gen: anxious HEENT: sclera anicteric, moist mucus membranes Neck: supple Lungs: clear to auscultation bilaterally Heart: bradycardic, no murmurs Abd: soft, non-tender, non-distended Ext: no edema Skin: warm/well-perfused; L thigh with wound with some induration, no fluctuance and no drainage Neuro: alert and oriented x3, no focal findings Psych: appropriate affect Objective Data Current Medications Generic Name Dose Route Start Last Admin Trade Name Freq PRN Reason Stop Dose Admin Acetaminophen 650 mg 10/13/20 17:30 10/13/20 23:18 Acetaminophen 325 Mg Tablet PO 650 mg Q6H PRN Administration Pain, Mild (Pain Scale 1-3) Apixaban 10 mg 10/15/20 18:00 Apixaban 5 Mg Tablet PO BID@0600,1800 ANDREEA Famotidine 20 mg 10/14/20 09:00 10/15/20 09:09 Famotidine 20 Mg Tablet PO 20 mg DAILY ANDREEA Administration Folic Acid 1 mg 10/15/20 09:00 10/15/20 09:09 Folic Acid 1 Mg Tablet PO 1 mg DAILY ANDREEA Administration Hydromorphone HCl 1 mg 10/13/20 17:30 10/15/20 12:03 Hydromorphone Hcl 0.5 Mg/0.5 Ml Syringe IVPUSH 1 mg Q4H PRN Administration Pain, Severe (Pain Scale 7-10) Hydroxyzine HCl 10 mg 10/13/20 19:22 10/14/20 20:31 Hydroxyzine Hcl 10 Mg Tablet PO 10 mg Q6H PRN Administration Anxiety Piperacillin Sod/Tazobactam 50 mls @ 100 mls/hr 10/13/20 19:00 10/15/20 14:06 Sod 3.375 gm/ Sodium Chloride IV Infused Q6H ANDREEA Infusion Vancomycin HCl 1,500 mg/ 500 mls @ 333.333 mls/hr 10/15/20 15:00 10/15/20 15:30 Sodium Chloride IV 333.33 mls/hr Q12H ANDREEA Administration Medication 1 each 10/14/20 09:00 No Benzodiazepines MISCELLANE DAILY ANDREEA Methadone HCl 25 mg 10/16/20 09:00 Methadone Hcl 1 Mg/0.1 Ml Oral.Conc PO DAILY ANDREEA Nicotine 21 mg 10/13/20 19:25 10/15/20 09:09 Nicotine 21 Mg Patch.Td24 TRANSDERMA 21 mg DAILY ANDREEA Administration Ondansetron HCl 4 mg 10/13/20 17:30 Ondansetron Hcl 4 Mg/2 Ml Vial IVPUSH Q8H PRN Nausea and Vomiting Pharmacy Consult 1 each 10/13/20 17:49 Consult Rx Vancomycin Dosing MISCELLANE DAILY PRN Consult order Phenobarbital 60 mg 10/14/20 09:00 10/15/20 09:09 Phenobarbital 30 Mg Tablet PO 10/15/20 21:01 60 mg BID ANDREEA Administration Phenobarbital 30 mg 10/16/20 09:00 Phenobarbital 30 Mg Tablet PO 10/17/20 21:01 BID ANDREEA Phenobarbital 30 mg 10/18/20 09:00 Phenobarbital 30 Mg Tablet PO 10/19/20 09:01 DAILY [facility] Sodium Chloride 3 ml 10/14/20 00:00 10/15/20 15:30 0.9 % Sodium Chloride Flush 3 Ml Syringe IVFLUSH 3 ml QSHIFT [facility] Administration Thiamine HCl 100 mg 10/15/20 09:00 10/15/20 09:09 Thiamine Hcl 100 Mg Tablet PO 100 mg DAILY [facility] Administration Labs CBC & Chem 7: 10/14/20 06:09 10/13/20 14:03 Labs: Laboratory Results - last 24 hr 10/14/20 10/15/20 17:26 01:43 PT 11.6 INR 1.0 Vancomycin Trough 8.7 L Microbiology Microbiology Results: Microbiology 10/13/20 14:03 Blood Culture - Preliminary Blood - Venous No growth after 24 hours. 10/13/20 14:03 Blood Culture - Preliminary Blood - Venous No growth after 24 hours. Quality Stroke Does the patient have a stroke diagnosis?: No VTE Prior VTE?: No VTE Risk Level:: Medical - moderate - high VTE Device Contraindication: Treatment Not Indicated VTE Drug Contraindication: N/A - Med Ordered Assessment and Plan (1) Cellulitis: Status: Acute (2) DVT (deep venous thrombosis): Status: Acute (3) Opiate abuse, continuous: Status: Inactive (4) Tobacco use: Status: Acute (5) Unspecified open wound, left lower leg, initial encounter: Status: Acute Assessment and Plan: hospital d#3 45yo M with opioid use disorder presented with worsening L thigh swelling/pain 2 wk after laceration repair admitted for L femoral vein DVT, EtOH intoxication/withdrawal risk, opioid withdrawal # L femoral vein DVT - possibly provoked by recent trauma (glass injury), transition from LMWH to apixaban today # L thigh laceration with concern of infection - not septic, on pip/maranda + vanc but if BCx negative will transition to amox/clav # chest pain - resolved, advised to abstain from cocaine # opioid use disorder - started on methadone by Addiction Medicine specialist with good effect # cocaine abuse - counseling # EtOH abuse with high risk for withdrawal - phenobarbital protocol, vitamins # tobacco abuse - NRT # VTE ppx - apixaban
[2020-10-15] MEDS: Apixaban 5 MG TABLET 10 MG PO (18:30)
[2020-10-16] MEDS: Piperacillin Sodium/Tazobactam 3.375 GM in 0.9 % Sodium Chloride 50 ML IV ×2 (00:48→06:50)
[2020-10-16] MEDS: HYDROmorphone HCl 0.5 MG/0.5 ML SYRINGE 1 MG IVPUSH ×3 (00:48→13:31)
[2020-10-16 04:00] VITALS: BP 153/68; PULSE 78; RESP 20; TEMP 37; O2SAT 98
[2020-10-16] MEDS: vancomycin HCL 1,500 MG in 0.9 % Sodium Chloride 500 ML 333.33 MG IV (04:12)
[2020-10-16] MEDS: Apixaban 5 MG TABLET 10 MG PO (06:50)
[2020-10-16 07:24] VITALS: BP 160/95; PULSE 53; RESP 18; TEMP 36.6; O2SAT 99
[2020-10-16] MEDS: Thiamine HCL 100 MG TABLET PO (08:23)
[2020-10-16] MEDS: Folic Acid 1 MG TABLET PO (08:23)
[2020-10-16] MEDS: Nicotine 21 MG PATCH.TD24 TRANSDERMA (08:23)
[2020-10-16] MEDS: 0.9 % Sodium Chloride Flush 3 ML SYRINGE IVFLUSH (08:23)
[2020-10-16] MEDS: PHENobarbitaL 30 MG TABLET PO (08:23)
[2020-10-16] MEDS: Famotidine 20 MG TABLET PO (08:23)
[2020-10-16 08:29] LABS: Creatinine Clr Calc Pharmacy 109.8; Estimated Glomerular Filt Rate > 60
[2020-10-16] MEDS: Amoxicillin/Potassium Clav 875 MG TABLET PO (10:42)
--- NOTE | 2020-10-16 10:50 | P.EN_ITS ---
Event Note Date of Service: 10/16/20 Event Note: Addiction follow up: Patient reports he is doing well with 25mg methadone. No issues overnight. Would like to stay at this dose. Plan: -BLAN[facility] RN working to [facility] -take home narcan ordered to be given at time of discharge
[2020-10-16 11:12] VITALS: BP 140/75; PULSE 53; RESP 18; TEMP 36.5; O2SAT 98
--- NOTE | 2020-10-16 11:34 | PM.DS ---
DS: Providers Provider Date of Service: 10/16/20 Date of admission: 10/13/20 17:30 Primary care physician: None Physician Consults: 10/13/20 19:22 Consult to Care Team Routine Comment: Reason for consultation: etoh/opiate use disorder 10/14/20 07:53 Addiction Medicine Routine Consulting Provider: Joya Chowdary Reason for consultation: opiate use Has provider been notified: No DS: Diagnosis Discharge Diagnosis (1) Cellulitis: Status: Acute (2) DVT (deep venous thrombosis): Status: Acute (3) Opiate abuse, continuous: Status: Inactive (4) Tobacco use: Status: Acute (5) Unspecified open wound, left lower leg, initial encounter: Status: Acute (6) Cocaine abuse: Status: Acute (7) Alcohol abuse: Status: Acute DS: Medications Discharge Medications Home Medications: Home Medications Medication Instructions Recorded Confirmed No Known Home Meds 10/13/20 10/13/20 DS: Summary Hospital Course Hospital Course: from admission H+P by hospitalist Manuel Bautista, 10/13/20: This is a 45-year-old gentleman brought to [facility] under police custody since the patient was arrested due to shoplifting. The patient complained of left leg swelling and pain. Approximately 2 weeks ago, the patient sustained a laceration due to significant cut from a glass. The wound was repaired at [place], patient was supposed to have a followup in 7 to 10 days, however, he missed the appointment and subsequently developed significant pain and swelling. In the emergency room, the patient was noted to have drainage and wound dehiscence in the left leg. CT scan of the left leg showed no fluid collection or drainable abscess. Sutures were removed,significant amount of pus was drained. Further workup included an ultrasound of the left leg that showed DVT of duplicated femoral veins, therefore, the patient was placed on Lovenox and now being admitted for continued monitoring and treatment. The patient at the present time admits that he is going through withdrawal symptoms, feeling shaky, nauseous, he admits using 3 bundles of heroin daily, last use was this morning. He usually smokes or inhale. Denies IV drug use. He also admits to drinking quarter pint of alcohol on a daily basis,last drink was at 3 am , complaining of shakiness. He is also complaining of feeling cold, chilly, and feverish. The patient was admitted to the [facility]. The left femoral vein DVT was provoked by trauma (glass injury). He was initially anticoagulated with subcutaneous enoxaparin, then transitioned to oral apixaban. In terms of his left leg wound, he was treated with intravenous piperacillin/tazobactam and vancomycin; blood cultures were negative, and he was transitioned to oral amoxicillin/clavulanate. He was seen by the Addiction Medicine specialist and was started on methadone. He was also advised to avoid cocaine, which was found on his urine toxicology screen, but which he denied using. He was treated with phenobarbital taper for alcohol abuse with high risk for withdrawal. He was given nicotine patch for tobacco abuse. He was discharged back to police custody with instructions to take: - apixaban 10 mg twice daily x 6 days, then 5 mg twice daily, total 3 months - amoxicillin/clavulanate 875/125 mg twice daily x 5 days - methadone 25 mg daily - nicotine patch 21 mg daily He will need a primary care doctor and an MAT clinic upon release from police custody. Time Spent with Patient Time attestation: Total time spent providing and/or coordinating discharge services: 35 Discharge coordination time: Greater than 30 minutes Quality: Stroke Does the patient have a stroke diagnosis?: No Physical Exam Vital Signs: Vital Signs: Last Vital Signs Temp 97.7 F 10/16/20 11:12 Pulse 53 10/16/20 11:12 Resp 18 10/16/20 11:12 BP 140/75 H 10/16/20 11:12 Pulse Ox 98 10/16/20 11:12 Body Mass Index 35.2 Gen: no acute distress HEENT: sclera anicteric, moist mucus membranes Neck: supple Lungs: clear to auscultation bilaterally Heart: bradycardic, no murmurs Abd: soft, non-tender, non-distended Ext: no edema Skin: warm/well-perfused; LLE wound closed with no fluctuance and no drainage and no surrounding erythema Neuro: alert and oriented x3, no focal findings Psych: appropriate affect DS: Data Data Completed and Pending Completed studies during hospitalization [Text1]: Laboratory Results WBC 5.3 X10*3/uL (4.8-10.8) 10/14/20 06:09 RBC 4.31 X10*6/uL (4.60-5.80) L 10/14/20 06:09 Hgb 12.0 g/dl (14.0-18.0) L 10/14/20 06:09 Hct 37.6 % (42-52) L 10/14/20 06:09 MCV 87.2 fL (80-98) 10/14/20 06:09 MCH 27.8 pg (27.0-33.0) 10/14/20 06:09 MCHC 31.9 g/dl (31.0-36.0) 10/14/20 06:09 RDW 13.2 % (11.0-16.0) 10/14/20 06:09 Plt Count 172 X10*3/uL (160-400) 10/14/20 06:09 MPV 11.2 fL (9.4-12.4) 10/14/20 06:09 Immature Gran % (Auto) 0.3 % (0.0-0.4) 10/13/20 15:55 Neut % (Auto) 71.8 % (45-73) 10/13/20 15:55 Lymph % (Auto) 18.3 % (20-40) L 10/13/20 15:55 Angelina % (Auto) 7.9 % (2-11) 10/13/20 15:55 Eos % (Auto) 1.3 % (0-4) 10/13/20 15:55 Baso % (Auto) 0.4 % (0-2) 10/13/20 15:55 Lymph # (Auto) 1.4 X10*3/uL (1.2-4.9) 10/13/20 15:55 Angelina # (Auto) 0.6 X10*3/uL (0.1-1.2) 10/13/20 15:55 Eos # (Auto) 0.1 X10*3/uL (0.0-0.4) 10/13/20 15:55 Baso # (Auto) 0.0 X10*3/uL (0.0-0.2) 10/13/20 15:55 Abs Immat Gran (auto) 0.02 X10*3/uL (0.00-0.03) 10/13/20 15:55 Absolute Neuts (auto) 5.6 X10*3/uL (2.0-8.3) 10/13/20 15:55 Absolute Nucleated RBC 0.000 X10*3/uL (0.0-0.012) 10/14/20 06:09 Nucleated RBC % (auto) 0.0 /100WBC (0.0-0.2) 10/14/20 06:09 PT 11.6 SEC (9.9-13.0) 10/14/20 17:26 INR 1.0 (0.9-1.1) 10/14/20 17:26 APTT 48.1 SEC (24.1-38.0) H D 10/13/20 18:33 Sodium 138 mmol/L (135-145) 10/13/20 14:03 Potassium 4.8 mmol/L (3.3-5.1) 10/13/20 14:03 Chloride 105 mmol/L (96-108) 10/13/20 14:03 Carbon Dioxide 24 mmol/L (22-29) 10/13/20 14:03 Anion Gap 14 (12-20) 10/13/20 14:03 BUN 14 mg/dL (9-16) 10/13/20 14:03 Creatinine 1.15 mg/dL (0.5-1.4) 10/16/20 07:57 Estim Creat Clear Calc 109.8 10/16/20 07:57 Estimated GFR > 60 10/16/20 07:57 Random Glucose 103 mg/dL (60-115) 10/13/20 14:03 Lactic Acid 1.1 mmol/L (0.5-2.0) 10/13/20 14:04 Calcium 9.2 mg/dL (8.4-10.2) 10/13/20 14:03 Magnesium 2.3 mg/dL (1.6-2.6) 10/13/20 14:03 Total Bilirubin 0.3 mg/dL (0.0-1.0) 10/13/20 14:03 Direct Bilirubin < 0.2 mg/dL (0.0-0.5) 10/13/20 14:03 AST 22 U/L (5-37) 10/13/20 14:03 ALT 18 U/L (0-40) 10/13/20 14:03 Alkaline Phosphatase 43 U/L (39-117) 10/13/20 14:03 Total Creatine Kinase 236 U/L (38-174) H 10/13/20 14:03 C-Reactive Protein 0.22 mg/dL (< or = 0.50) 10/13/20 14:03 Total Protein 7.4 g/dL (6.5-8.0) 10/13/20 14:03 Albumin 4.0 g/dL (3.5-5.0) 10/13/20 14:03 Vancomycin Trough 8.7 mcg/mL (10.0-20.0) L 10/15/20 01:43 Urine Opiates Screen POSITIVE (Not Detect) H 10/14/20 04:49 Ur Barbiturates Screen Not Detected (Not Detect) 10/14/20 04:49 Ur Phencyclidine Scrn Not Detected (Not Detect) 10/14/20 04:49 Ur Amphetamines Screen Not Detected (Not Detect) 10/14/20 04:49 U Benzodiazepines Scrn Not Detected (Not Detect) 10/14/20 04:49 Urine Cocaine Screen POSITIVE (Not Detect) H 10/14/20 04:49 U Marijuana (THC) Screen Not Detected (Not Detect) 10/14/20 04:49 COVID-19 ([facility]) Negative (Negative) 10/13/20 14:04 COVID-19 Clin Com See Note 10/13/20 14:[address] 10/13/20 13:40 IMPRESSION: Approximately 90% osseous bridging of the comminuted tibial fracture. Diffuse subcutaneous edema with no focal fluid collection to indicate an abscess. Visualization is partially obscured by metal artifact. Venous Duplex 10/13/20 13:40 IMPRESSION: Acute DVT within both duplicated femoral veins. Findings communicated to Dr. Collazo via telephone at 1501 on 10/13/[address] Bravo. Discharge Plan Discharge Patient Disposition: Xfer Other Discharge Diagnosis: left leg DVT, left leg wound infection, opioid use disorder Referrals: Physician,None [Primary Care Provider] - 1 Week Discharge Medications: New nicotine 21 mg/24 hr Patch 24 Hour 21 mg transdermal DAILY 300 Days Qty: 30 RF: 0 amoxicillin-pot clavulanate 875-125 mg Tablet 875 mg PO Q12H Qty: 10 RF: 0 Eliquis 5 mg Tablet See Rx Instructions .ROUTE .COMPLEX Qty: 72 RF: 0 folic acid 1 mg Tablet 1 mg PO DAILY Qty: 30 RF: 0 thiamine mononitrate (vit B1) 100 mg Tablet 100 mg PO DAILY Qty: 30 RF: 0 methadone [Methadose] 10 mg/mL Concentrate 25 mg PO DAILY Qty: 0 RF: 0 Discharge Orders: Discharge Order (Routine); Ordered 10/16/20 Ordered By: Paige Ying Diet: advance to usual diet Activity on Discharge: As tolerated Stand Alone Forms: Patient Portal Discharge page Care Plan Goals: treatment of clot treatment of wound infection treatment of substance abuse disorder Health Concerns: left leg DVT left leg wound infection opioid use disorder Plan of Treatment: apixaban 10 mg twice daily for 6 days, then 5 mg twice daily; total 3 months amoxicillin/clavaulanate 875/125 mg twice daily for 5 days start methadone 25 mg daily establish primary care upon release from senior care Assessment: as above Patient Instructions: Apixaban (By mouth), Cigarette Smoking and Your Health (GEN), Cocaine Abuse (DC), Deep Vein Thrombosis (DC), Abuse of Alcohol (DC), Narcotic Use Disorder (DC)
--- NOTE | 2020-10-16 13:27 | MHC.CM.PN ---
pt dcd back to assisted spoke with jess at [phone] who asked that scripts be faxed to medical dept with the dc summary [phone] all faxed
== END 2020-10-16 15:03 | disposition other institution (70) | DRG 863 ==
LOC: HO.ED 16:03 → HO.EDOVER 17:44 → HO.IMC 19:36
PROVIDERS: Admitting Provider Hospitalist; Emergency Provider Emergency Medicine; Visit Provider Family Medicine
DX: T81.41XA Infection following a procedure, superficial incisional surgical site, initial encounter (principal); L03.116 Cellulitis of left lower limb; I82.412 Acute embolism and thrombosis of left femoral vein; F11.23 Opioid dependence with withdrawal; F10.10 Alcohol abuse, uncomplicated; F17.210 Nicotine dependence, cigarettes, uncomplicated; Z71.6 Tobacco abuse counseling; Z20.822 Contact with and (suspected) exposure to COVID-19; Z79.01 Long term (current) use of anticoagulants; Z79.899 Other long term (current) drug therapy
CPT/HCPCS: 36415; 73701; 80048; 80076; 80202; 80307; 82550; 82565; 83605; 83735; 85025; 85027; 85610; 85730; 86140; 87040; 87635; 90715; 93005; 93971; 99285; J1170; J1650; J2543; J3370; Q9967